=== PATIENT | male | born 1975 | race African-American/Black ===

== ENCOUNTER 2016-06-06 19:03 | Emergency (ER) | payer BC, MEDICAID ==
--- OUTSIDE RECORDS SUMMARY | 2016-06-06 19:10 | XMS REPORT | Continuity of Care Document ---
Author Author [facility] Organization [facility] Address Unknown Phone Unavailable Care Team Providers Care Music Library Assistant Name Role Phone Madie Chan PCP [phone] Source Comments Some departments are not documenting in the electronic medical record. If you do not see the information that you expected, contact Release of Information in the Health Information Management department at [phone] for further assistance in locating additional records.[facility] Active Allergies and Adverse Reactions No Known Allergies Current Medications Prescription Sig. Disp. Refills Start End Date Status Date lisinopril (PRINIVIL; Take 1 Tab by mouth 30 Tab 5 04/25/19 Active ZESTRIL) 20 mg tablet daily. 14 meloxicam (MOBIC) 15 mg 07/30/19 Active tablet 14 NORVIR 100 mg tablet TAKE 1 TABLET BY MOUTH 60 Tab 2 03/19/20 Active TWICE DAILY 14 darunavir (PREZISTA) 600 1 Tab twice daily with 60 Tab 2 03/19/20 Active mg tab meals. 14 emtricitabine/tenofovir 1 Tab daily. 30 Tab 2 03/19/20 Active (TRUVADA) 200/300 mg 14 tablet Active Problems Problem Noted Date HIV (human immunodeficiency virus infection) (HCC) 08/07/2012 Immunizations Name Dates Previously Given Next Due Flu Vaccine Trivalent=>3 12/31/2012 YO Flu Vaccine Trivalent=>3 12/12/2013 Yo (Preservative Free) Hepatitis B Vaccine Adult 08/01/2013, 04/25/2013 3 Dose IM Pneumococcal 10/09/2012 Vaccine(13-[facility]/immunocompromised adult) Tdap Vaccine 03/27/2009 Social History Tobacco Use Types Packs/Day Years Used Date Former Smoker Cigarettes Smokeless Tobacco: Never Used Alcohol Use Drinks/Week oz/Week Comments No Last Filed Vital Signs Vital Sign Reading Time Taken Blood Pressure 124/82 12/12/2013 11:40 AM CDT Pulse 72 12/12/2013 11:40 AM CDT Temperature 36.6 C (97.9 F) 12/12/2013 11:40 AM CDT Respiratory Rate 16 12/12/2013 11:40 AM CDT Height 1.803 m (5' 11") 12/12/2013 11:40 AM CDT Weight 72.576 kg (160 lb) 12/12/2013 11:40 AM CDT Body Mass Index 22.33 12/12/2013 11:40 AM CDT Oxygen Saturation - - Plan of Care Health Maintenance Due Date Last Done Comments Physical (Comprehensive) 01/13/1983 Exam Influenza Vaccine 11/26/2015 12/12/2013, 12/31/2012 Tetanus Vaccine 03/27/2019 03/27/2009 Pertussis Vaccine Completed 03/27/2009 Results from Last 3 Months Not on file
== END 2016-06-06 19:34 | disposition left against medical advice (07) ==
LOC: ER 19:05
DX: R10.30 Lower abdominal pain, unspecified (principal); Z53.21 Procedure and treatment not carried out due to patient leaving prior to being seen by health care provider